=== PATIENT | male | born 1995 | race African-American/Black ===

== ENCOUNTER 2017-08-02 23:30 | Emergency (ER) | payer OTHER ==
[~2017-08-02] VITALS: Ht 188 cm; Wt 76.9 kg
[~2017-08-02 23:30] MED LIST: FLEXERIL10 MG PO; MIRALAX17 GM PO; MOTRIN800 MG PO; ULTRAM50 MG PO
[2017-08-02 23:51] LABS: HEMATOCRIT 39.9 % (38.0-50.0); HEMOGLOBIN 13.4 G/DL (12.5-16.6); MCH 28.8 PG (29.0-34.0); MCHC 33.6 G/DL (30.0-36.0); MCV 85.8 FL (86-99); PLATELET COUNT 202 K/uL (156-360); RBC DIS.WIDTH-CV 13.4 % (11.8-14.6); RED BLOOD COUNT 4.65 M/uL (4.00-5.50); WHITE BLOOD COUNT 6.5 K/uL (4.1-10.2)
[2017-08-03 00:03] LABS: CHLORIDE 100 mEq/L (99-109); POTASSIUM 3.8 mEq/L (3.7-5.4); SODIUM 139 mEq/L (136-147)
[2017-08-03 00:05] LABS: GLUCOSE 109 mg/dL (70-99)
[2017-08-03 00:08] LABS: SERUM ETHYL ALCOHOL < 10 mg/dL
[2017-08-03 00:09] LABS: CREATININE 1.3 mg/dL (0.6-1.3); GFR ESTIMATE (CALCULATED) > 59 mL/min/ (58.99-99999)
[2017-08-03 00:11] LABS: UREA NITROGEN (BUN) 16 mg/dL (9-23)
[2017-08-03 00:12] LABS: ACETAMINOPHEN (TYLENOL) < 10 mcg/mL (10-30); SALICYLATE < 5.0 MG/DL (15-30)
[2017-08-03 01:25] LABS: AMPHETAMINE NEGATIVE (500 ng/mL); BARBITURATES NEGATIVE (200 ng/mL); BENZODIAZEPINES NEGATIVE (150 ng/mL); BUPRENORPHINE NEGATIVE (10 ng/mL); COCAINE PRESUMPTIVE POSITIVE (150 ng/mL); METHADONE NEGATIVE (200 ng/mL); METHAMPHETAMINE NEGATIVE (500 ng/mL); OPIATES (MORPHINE) NEGATIVE (100 ng/mL); OXYCODONE NEGATIVE (100 ng/mL); PHENCYCLIDINE NEGATIVE (25 ng/mL); PROPOXYPHENE NEGATIVE (300 ng/mL); THC CANNABINOIDS PRESUMPTIVE POSITIVE (50 ng/mL); TRICYCLIC ANTIDEPRESSANTS NEGATIVE (300 ng/mL)
[2017-08-03] MEDS ORDERED: NARCAN4 MG NS (02:19)
[2017-08-03 02:34] VITALS: BP 108/71
== END 2017-08-03 03:25 | disposition home or self-care (01) ==
LOC: EME → EDBD 23:30 → EME 08-03 01:00
PROVIDERS: Emergency Medicine
DX: T40.5X1A Poisoning by cocaine, accidental (unintentional), initial encounter (principal); T40.1X1A Poisoning by heroin, accidental (unintentional), initial encounter; F19.129 Other psychoactive substance abuse with intoxication, unspecified; J45.909 Unspecified asthma, uncomplicated; B19.20 Unspecified viral hepatitis C without hepatic coma; R56.9 Unspecified convulsions; F90.9 Attention-deficit hyperactivity disorder, unspecified type; F41.9 Anxiety disorder, unspecified; F31.9 Bipolar disorder, unspecified; F17.200 Nicotine dependence, unspecified, uncomplicated; Z87.19 Personal history of other diseases of the digestive system
CPT/HCPCS: 80048; 84999; 85027; 93005; 99281; 99285; G0480; J2310; J7030